=== PATIENT | female | born 1980 | race Caucasian/White ===

== ENCOUNTER → 2021-04-09 14:17 | Outpatient (CLI) | payer OTHER, SELFPAY ==
--- NOTE | 2021-04-09 14:19 | DI.RAD.S_ITS ---
PROCEDURE: XR KUB INDICATIONS: Left ureteral calculi TECHNIQUE: One view of the abdomen acquired. COMPARISON: [facility], RG, CT ABDOMEN/PELVIS WITH CONTRAST, 03/06/2021, 7:15. FINDINGS: Surgical changes and devices: None. Bowel: Bowel gas pattern is normal. Soft tissues: No suspicious abdominal calcifications. Visualized solid organ contours appear normal in size. 2 mm density between the left 2nd and 3rd lumbar transverse process probably reflects fecal debris. Bones: No suspicious bony lesions. IMPRESSION: No radiographic evidence of left ureteral calculus Approved by: David Lantigua M.D. on 04/09/2021 at 18:36
== END ==
PROVIDERS: PCP Family Medicine; Referring Provider Urology; Visit Provider Urology
DX: N20.1 Calculus of ureter (principal); E28.2 Polycystic ovarian syndrome
CPT/HCPCS: 74018; 81002

== ENCOUNTER → 2021-04-26 15:39 | Outpatient (CLI) | payer OTHER, SELFPAY ==
--- NOTE | 2021-04-26 15:40 | DI.CT.S_ITS ---
PROCEDURE: CT ABDOMEN PELVIS WO CON INDICATIONS: Kidney stone TECHNIQUE: Axial sections were acquired from the lung bases to the pubic symphysis. Coronal and sagittal reformats were performed. For radiation dose reduction, the following was used: automated exposure control, adjustment of mA and/or kV according to patient size. COMPARISON: [facility], , CT ABDOMEN/PELVIS WITH CONTRAST, 03/06/2021, 7:15. FINDINGS: Image quality: Excellent. Lung bases: Unremarkable. Heart: No significant findings. URINARY: Right Kidney: No hydronephrosis. Punctate nephrolithiasis. Right Ureter: No hydroureter. Left Kidney: No stones or hydronephrosis. Left Ureter: No hydroureter. Bladder: Normal wall thickness. No stones. ABDOMEN: Liver: Unremarkable. Gallbladder: No significant abnormality. Biliary ducts: Unremarkable. Pancreas: Unremarkable. Spleen: Unremarkable. Adrenal Glands: Unremarkable. Stomach and Bowel: No evidence of intestinal obstruction or inflammatory change. Colonic diverticulosis. Normal appearance of the appendix. Peritoneum: No abnormal intraperitoneal fluid. No free air. Ventral Wall: Trace fat containing periumbilical hernia. Abdominal Nodes: No enlarged retroperitoneal or mesenteric lymph nodes. Vessels: Aorta and inferior vena cava are normal in size. PELVIS: Pelvic Organs: Unremarkable. Pelvic Nodes: Unremarkable. Miscellaneous: No inguinal hernias are seen. Bones: Unremarkable. IMPRESSION: 1. Nephrolithiasis without evidence of obstructive uropathy. Dictated by: Vahe Hope M.D. on 04/26/2021 at 15:48 Approved by: Vahe Hope M.D. on 04/26/2021 at 16:00
== END ==
PROVIDERS: PCP Family Medicine; Referring Provider Urology; Visit Provider Urology
DX: N20.1 Calculus of ureter (principal); N20.0 Calculus of kidney
CPT/HCPCS: 74176